=== PATIENT | female | born 1965 | race Caucasian/White ===

== ENCOUNTER 2018-03-18 03:45 | Emergency (ER) | payer BC ==
[2018-03-18] MEDS ORDERED: methylPREDNISolone SOD 40 MG* 1 ML VIAL IM ONE (05:57)
--- NOTE | 2018-03-18 06:09 | ED ---
Skin Complaint - HPI Summary HPI Summary: Patient presents with rash over her left side of her face, bilateral torso, bilateral forearms and left leg over the past week. She reports she came into contact with poison domi while gardening last Thursday and had redness, blisters, itching and swelling in these areas the following morning. She's had a reaction to poison domi in the past as she has sensitive skin and asthma, the latter is well controlled. She went to her PCP who started her on a prednisone taper dose starting at 20 mg for 3 days then dropping. She reports she felt okay the first 3 days however when she started to taper down, the itching seemed to get worse. She denies spread of her rash and no difficulty with breathing or swallowing. Additionally she denies wheezing, nausea, abdominal pain however her rash is not improving and she continues to itch despite efforts of trying topical bleach, cider vinegar, calamine lotion, etc. to try to dry the oils and sooth her skin. She has required higher doses of steroids in the past for skin reactions and is hoping to receive such today. - History of Current Complaint Chief Complaint: EDRashSkinAbscess Time Seen by Provider: 03/18/18 05:45 Stated Complaint: FACIAL SWELLING Hx Obtained From: Patient, Family/Plastics Repairer - Pain Intensity: 7 - Allergy/Home Medications Allergies/Adverse Reactions: Allergies Allergy/AdvReac Type Severity Reaction Status Date / Time MS Levofloxacin Allergy Intermediate Hives Verified 05/19/17 10:36 [From Levaquin] MS Sulfamethoxazole Allergy Hives Verified 05/19/17 10:36 w/Trimethoprim [From Bactrim] seasonal Allergy Mild See Comment Uncoded 05/19/17 10:36 PMH/Surg Hx/FS Hx/Imm Hx Previously Healthy: Yes Endocrine/Hematology History: Reports: Other Endocrine/Hematological Disorders - atopic Denies: Hx Diabetes Cardiovascular History: Denies: Hx Hypertension, Hx Pacemaker/ICD Respiratory History: Reports: Hx Asthma GI History: Reports: Other GI Disorders - hx colitis History: Denies: Hx Renal Disease Musculoskeletal History: Reports: Hx Joint Replacement - Lt TKR @ [facility], Other Musculoskeletal History - arthritis left knee Sensory History: Denies: Hx Hearing Aid Psychiatric History: Denies: Hx Panic Disorder - Cancer History Hx Chemotherapy: No Hx Radiation Therapy: No - Surgical History Surgery Procedure, Year, and Place: x 2. PERINEAL CYST - X 2. BLADDER BIOPSY - BENIGN. Lt TKR Infectious Disease History: No Infectious Disease History: Denies: Traveled Outside the [place] in Last 30 Days - Social History Occupation: Employed Full-time - business instructor Lives: With Family Alcohol Use: Occasionally Hx Substance Use: No Substance Use Type: Reports: None Hx Tobacco Use: No Smoking Status (MU): Never Smoked Tobacco Review of Systems Constitutional: Negative Negative: Fever, Chills, Fatigue Eyes: Negative - swelling about the Lt eye but no ocular pain, itching or sx Negative: Photophobia, Blurred Vision, Diplopia, Drainage, Erythema ENT: Negative Cardiovascular: Negative Respiratory: Negative Negative: Shortness Of Breath Gastrointestinal: Negative Negative: Abdominal Pain, Vomiting, Nausea Positive: no symptoms reported Musculoskeletal: Negative Positive: Rash Neurological: Negative Psychological: Normal All Other Systems Reviewed And Are Negative: Yes Physical Exam Triage Information Reviewed: Yes Vital Signs On Initial Exam: Initial Vitals Temp Pulse Resp BP Pulse Ox 97.1 F 78 16 153/96 98 03/18/18 03:47 03/18/18 03:47 03/18/18 03:47 03/18/18 03:47 03/18/18 03:47 Vital Signs Reviewed: Yes Appearance: Positive: Well-Appearing, No Pain Distress, Obese Skin: Positive: Warm, Skin Color Reflects Adequate Perfusion, Dry - confluence of erythematous raised rash over Lt face, B/L forearms (these areas with healing blisters), torso and Lt LE - no fresh vesicles, open wounds or skin breakdown Eyes: Positive: Normal, EOMI, Conjunctiva Clear. Negative: Conjunctiva Inflammed, Discharge ENT: Positive: Normal ENT inspection, Hearing grossly normal, Pharynx normal - no edema. Negative: Muffled voice, Hoarse voice Neck: Positive: Supple Respiratory/Lung Sounds: Positive: Clear to Auscultation, Breath Sounds Present. Negative: Stridor, Wheezes, Unable to speak in full sentences, Fatigue Cardiovascular: Positive: Normal, S1, S2 Musculoskeletal: Positive: Normal, Strength/ROM Intact Neurological: Positive: Normal, Sensory/Motor Intact, Alert, Oriented to Person Place, Time, CN Intact II-III Psychiatric: Positive: Normal - concerned but calm and cooperative Diagnostics - Vital Signs Vital Signs Temp Pulse Resp BP Pulse Ox 03/18/18 03:47 97.1 F 78 16 153/96 98 - Laboratory Lab Statement: Any lab studies that have been ordered have been reviewed, and results considered in the medical decision making process. Course/Dx - Diagnoses Provider Diagnoses: Allergic dermatitis due to poison domi Discharge - Sign-Out/Discharge Documenting (check all that apply): Patient Departure - Discharge Plan Condition: Stable Disposition: HOME Prescriptions: predniSONE TAB* [Deltasone 10 MG TAB*] 10 mg PO DAILY #86 tab Patient Education Materials: Urticaria (ED), Poison Domi (ED) Referrals: Torrey Underwood MD [Primary Care Provider] - Additional Instructions: Prednisone taper: 6 tabs daily x 4 days, 5 tabs daily x 4 days, 4 tabs daily x 4 days, 3 tabs daily x 4 days, 2 tabs daily x 4 days, 1 tab daily x 4 days then 1/2 tab daily x 4 days Zyrtec 1 x day or Benadryl every 6 hours - caution drowsiness with the latter - do not operate machinery If contact with poison domi, oak, or sumac in the future, try Zanfel over-the- counter wash to dry oils and expedite healing process/reduce reaction Moving forward now, avoid any harsh chemicals, scented or dyed products as these may irritate your skin - use scent-free, dye-free toiletries, detergents, soaps, etc Stay hydrated with water and avoid diuretics *If symptoms persist or worsen, follow-up with PCP or return to the ED if you have difficulty breathing or swallowing - Billing Disposition and Condition Condition: STABLE Disposition: Home
[2018-03-18 06:36] VITALS: BP 146/80
== END 2018-03-18 06:37 | disposition home or self-care (01) ==
LOC: ED 03:45
DX: L23.7 Allergic contact dermatitis due to plants, except food (principal); J45.909 Unspecified asthma, uncomplicated; Z96.652 Presence of left artificial knee joint; Z88.1 Allergy status to other antibiotic agents; Z88.2 Allergy status to sulfonamides
CPT/HCPCS: 96372; 99282; J2920